=== PATIENT | male | born 1960 | race Caucasian/White ===

== ENCOUNTER 2019-11-03 10:28 | Emergency (ER) | payer BC ==
[2019-11-03 10:33] VITALS: BP 162/95; PULSE 95; RESP 18; TEMP 98.2
--- NOTE | 2019-11-03 11:00 | ED ---
Skin/Abscess/FB HPI - General Chief complaint: Skin/Abscess/Foreign Body Stated complaint: male gu lac Time Seen by Provider: 11/03/19 10:35 Source: patient Mode of arrival: ambulatory Limitations: no limitations - History of Present Illness Initial comments: Patient is a 59-year-old male presenting to the emergency Department with complaints of some bleeding coming from the left side of his scrotum. Patient denies any injuries or pain to this area. He states he noticed a little bit of blood in his underwear this morning and then a large amount of blood to come from the area. He states he believes it is stopped at this time. He is unsure why this has happened. He denies any fever, chills, medications. He states he is not on blood thinners. He does not take any medication at all. He denies any injuries or traumas area. He states the last few days he has been in the car a lot recently as [place] He denies any pain or swelling, redness of the scrotum. There are no further complaints. - Related Data Allergies Allergy/AdvReac Type Severity Reaction Status Date / Time No Known Allergies Allergy Verified 11/03/19 10:33 Review of Systems ROS Statement: Those systems with pertinent positive or pertinent negative responses have been documented in the HPI. ROS Other: All systems not noted in ROS Statement are negative. Past Medical History Past Medical History: No Reported History History of Any Multi-Drug Resistant Organisms: None Reported Past Surgical History: No Surgical Hx Reported Past Psychological History: No Psychological Hx Reported Smoking Status: Never smoker Past Alcohol Use History: Occasional Past Drug Use History: None Reported General Exam - General Exam Comments Initial Comments: GENERAL: Patient is well-developed and well-nourished. Patient is nontoxic and in no acute distress. HEAD: Atraumatic, normocephalic. EYES: Pupils equal round and reactive to light, extraocular movements intact, sclera anicteric, conjunctiva are normal. Eyelids were unremarkable. ENT: TMs normal, nares patent, oropharynx clear without exudates. Moist mucous membranes. NECK: Normal range of motion, supple without lymphadenopathy or JVD. LUNGS: Unlabored respirations. Breath sounds clear to auscultation bilaterally and equal. No wheezes rales or rhonchi. HEART: Regular rate and rhythm without murmurs, rubs or gallops. ABDOMEN: Soft, nontender, normoactive bowel sounds. No guarding, no rebound. No masses appreciated. MUSCULOSKELETAL: Normal extremities with adequate strength and normal range of motion, no pitting or edema. No clubbing or cyanosis. NEUROLOGICAL: Patient is alert and oriented x 3. Normal speech, normal gait. PSYCH: Normal mood, normal affect. SKIN: Warm, Dry, normal turgor, no rashes or lesions noted. Limitations: no limitations exam: Present: other (Several very tiny black dots that could be very small little blood clots/or from a dermatitis. There is no active bleeding at this time.). Absent: testicular tenderness, urethral discharge, scrotal swelling Course Vital Signs 11/03/19 10:29 Temperature 98.2 F Pulse Rate 95 Respiratory 18 Rate Blood Pressure 162/95 O2 Sat by Pulse 100 Oximetry Medical Decision Making - Medical Decision Making Patient is a 59-year-old male here for bleeding coming from the left side of his scrotum that he noticed just prior to arrival. On exam, there is no active bleeding at this time. Patient does have several very tiny black dots on the left side of his scrotum that could be. Tiny blood clots. This could be from chafing or rubbing on material from his underwear or pain. Patient has no pain, no redness, no swelling. I discussed with patient that he should just keep an eye in the area, if symptoms progress or he notices spots developing in other parts of his body, return to the ER. I discussed the patient he should follow up with his primary care physician and/or urologist. Patient is in agreement with this plan of care. He is stable for discharge. Case discussed with Dr. Jacobs who did see the patient and agrees with this plan of care. Disposition Clinical Impression: Scrotal bleeding Disposition: HOME SELF-CARE Condition: Stable Instructions (If sedation given, give patient instructions): Dermatitis (ED) Additional Instructions: Please return to the Emergency Department if symptoms worsen or any other concerns. Recommend observing the area, follow-up with PCP and/or urology as discussed. Is patient prescribed a controlled substance at d/c from ED?: No Referrals: Darrel Rogers MD [Primary Care Provider] - 1-2 days
== END 2019-11-03 11:07 | disposition home or self-care (01) ==
LOC: EC 10:28
DX: N50.1 Vascular disorders of male genital organs (principal)
CPT/HCPCS: 99283

== ENCOUNTER → 2023-02-14 | Outpatient (CLI) | payer BC ==
--- NOTE | 2023-02-14 13:04 | XR ---
EXAMINATION TYPE: XR lumbosacral spine min 4V DATE OF EXAM: 02/14/2023 COMPARISON: None HISTORY: Lumbago left side TECHNIQUE: 5V lumbar spine FINDINGS: Scoliosis is present with convexity to the left centered at L3. Facet degenerative changes are present throughout the lumbar spine. There is a grade 1 spondylolisthesis of L4 anteriorly on L5. There is diffuse loss of disc height throughout the lumbar spine. Vertebral body heights appear pres erved. Spondylosis is present. IMPRESSION: 1. Scoliosis. 2. Diffuse facet degenerative changes. 3. Diffuse degenerative disc changes.
== END | disposition home or self-care (01) ==
LOC: RADXRMAIN 09:29
PROVIDERS: ATTEND Nurse Practitioner Family
DX: M47.816 Spondylosis without myelopathy or radiculopathy, lumbar region (principal); M51.36 Other intervertebral disc degeneration, lumbar region; M41.86 Other forms of scoliosis, lumbar region
CPT/HCPCS: 72110